=== PATIENT | female | born 1950 | race Caucasian/White ===

== ENCOUNTER 2017-04-03 12:10 | Observation (INO) | payer OTHER ==
[2017-04-03 12:18] VITALS: BMI 25.7
[2017-04-03] MEDS ORDERED: ALBUTEROL SO4 2.5/IPRATROPIUM 0.5 INH SOL 3 ML VIAL.NEB. NEB ONE ×5 (13:41→14:33)
[2017-04-03] MEDS ORDERED: predniSONE 20 MG TABLET (UD) PO ONE (13:41)
[2017-04-03] MEDS ORDERED: predniSONE 20 MG TABLET (UD) ONE (13:51)
--- NOTE | 2017-04-03 13:52 | PDOC ---
Attending Attestation - HPI HPI: 04/03/17 14:46 The patient is a 67 year old female, with a significant past medical history of Asthma, Hypertension, Hyperlipidemia, and Diet Controlled Diabetes, who presents to the emergency department with shortness of breath and cough for the past 3 days. She reports that she has been having difficulty sleeping during this time frame. She notes that her last asthma exacerbation was 3 months ago. She notes that she has never been hospitalized or intubated. She reports being on nebulizer twice a day with little to no improvement of symptoms. She denies being on steroids. She reports that she received her flu shot this year and has had the flu as well, which resolved. The patient denies chest pain, headache and dizziness. Denies fever, chills, nausea, vomit, diarrhea and constipation. Denies dysuria, frequency, urgency and hematuria. Allergies: Black pepper, kiwi Past surgical history: None reported Social history: No alcohol, tobacco or drug use reported - Physicial Exam PE: 04/03/17 14:46 GENERAL: Awake, alert, and fully oriented, in no acute distress HEAD: No signs of trauma, normocephalic, atraumatic EYES: PERRLA, EOMI, sclera anicteric, conjunctiva clear ENT: Auricles normal inspection, hearing grossly normal, nares patent, oropharynx clear without exudates. Moist mucosa NECK: Normal ROM, supple, no lymphadenopathy, JVD, or masses LUNGS: (+) Wheezing diffusely. No distress, speaks full sentences. HEART: Regular rate and rhythm, normal S1 and S2, no murmurs, rubs or gallops, peripheral pulses normal and equal bilaterally. ABDOMEN: Soft, nontender, normoactive bowel sounds. No guarding, no rebound. No masses EXTREMITIES : Normal inspection, Normal range of motion, no edema. No clubbing or cyanosis. NEUROLOGICAL: Cranial nerves II through XII grossly intact. Normal speech, normal gait, no focal sensorimotor deficits SKIN: Warm, Dry, normal turgor, no rashes or lesions noted. <Hilario Morfin - Last Filed: 04/03/17 14:46> - Resident Resident Name: Zack Lau - ED Attending Attestation I have performed the following: I have examined & evaluated the patient, The case was reviewed & discussed with the resident, I agree w/resident's findings & plan, Exceptions are as noted - Medical Decision Making 04/03/17 13:52 I, Dr. Negar Bryan, DO, attest that this document has been prepared under my direction and personally reviewed by me in its entirety. I further attest, that it accurately reflects all work, treatment, procedures and medical decision -making performed by me. 04/03/17 14:18 a/p: 67yo female with wheezing -will give duo nebs received 1 duo neb received prednisone had flu shot no f/c nontoxic in appearance will obtain cxr to r/o pna given productive cough discussed plan with the patient who agrees with the plan 04/03/17 16:00 pt still with wheezing. will do labs will keep in obs for ivf hydration, mag, asthma exacerbation 04/03/17 16:55 pt will be placed in obs <Negar Bryan - Last Filed: 04/03/17 16:55> Discharge Disposition <Hilario Morfin - Last Filed: 04/03/17 14:46> - Discharge Dispostion Last Admission D/C Date: 07/25/02 Admit: Yes <Negar Bryan - Last Filed: 04/03/17 16:55> - Diagnosis Asthma exacerbation - Discharge Dispostion Condition at time of disposition: Fair - Prescriptions Prescriptions: Albuterol Sulfate Inhaler - [Ventolin HFA Inhaler -] 1 - 2 inh PO Q4H #1 inhaler Inhaler, Assist Devices [Space Chamber Plus] 1 each MC QID #1 spacer Prednisone [Deltasone -] 40 mg PO DAILY #4 tablet - Referrals Referrals: Ashley Navarro MD [Primary Care Provider] - - Patient Instructions Printed Discharge Instructions: Asthma -- Adult - Post Discharge Activity
--- NOTE | 2017-04-03 14:34 | PDOC ---
History of Present Illness - General Chief Complaint: Asthma Stated Complaint: ASTHMA Time Seen by Provider: 04/03/17 13:37 History Source: Patient Exam Limitations: No Limitations - History of Present Illness Initial Comments: 04/03/17 14:27 67F with pmh of asthma presenting with sob and non-producing cough for the past 3 days, difficulty sleeping, getting worse. Previous exacerbation 3 months ago. Never hospitalized or intubated, Only used 2 doses of albuterol inhaler at home, Not on steroids. Past History - Past Medical History Allergies/Adverse Reactions: Allergies Allergy/AdvReac Type Severity Reaction Status Date / Time black pepper Allergy STOMACH Verified 06/16/15 19:37 PAIN kiwi Allergy Swelling Verified 06/16/15 19:37 No Known Drug Allergies Allergy Verified 06/16/15 19:37 JALAPENOS Allergy Uncoded 06/16/15 19:37 Home Medications: Ambulatory Orders Ascorbic Acid [Vitamin C] 500 mg PO DAILY 02/03/15 Calcium 500 mg PO DAILY 02/03/15 Docosahexanoic Acid/Epa [Fish Oil Softgel] 1 each PO DAILY 02/03/15 Enalapril Maleate [Vasotec -] 5 mg PO DAILY 02/03/15 Multivitamin [Poly-Vitamin] 1 each PO DAILY 02/03/15 Omeprazole [Prilosec (RX)] 40 mg PO DAILY 02/03/15 Simvastatin [Zocor -] 20 mg PO HS 02/03/15 Albuterol Sulfate [Proventil HFA Inhaler -] 1 - 2 inh PO PRN #1 hfa.aer.ad 06/15 Azithromycin [Zithromax 250mg Tablets -] 250 mg PO UTDICT #6 tab 06/16/15 Fexofenadine HCl [Lisa Allergy] 180 mg PO DAILY #30 tablet 06/16/15 Prednisone [Deltasone -] 20 mg PO BID #7 tablet 06/16/15 Promethazine HCl [Phenergan Plain 6.25 MG/5 ML -] 5 ml PO QID #60 ml 06/16/15 Albuterol Sulfate Inhaler - [Ventolin HFA Inhaler -] 1 - 2 inh PO Q4H #1 inhaler 04/03/17 Inhaler, Assist Devices [Space Chamber Plus] 1 each MC QID #1 spacer 01/14/18 Prednisone [Deltasone -] 40 mg PO DAILY #4 tablet 04/03/17 Anemia: No Asthma: Yes Cancer: Yes (2003 Left breast) Cardiac Disorders: No (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) CVA: No COPD: No CHF: No Dementia: No Diabetes: Yes (Not on meds) GI Disorders: Yes (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) Disorders: No HTN: Yes Hypercholesterolemia: Yes Liver Disease: No Seizures: No Thyroid Disease: No - Immunization History Immunization Up to Date: Yes (flu and pna shot up to date) - Suicide/Smoking/Psychosocial Hx Smoking History: Never smoked Have you smoked in the past 12 months: No Information on smoking cessation initiated: No Hx Alcohol Use: No Drug/Substance Use Hx: No Substance Use Type: None Hx Substance Use Treatment: No Review of Systems - Review of Systems Able to Perform ROS?: Yes Is the patient limited Welsh proficient: No Constitutional: No: Symptoms Reported HEENTM: No: Symptoms Reported Respiratory: Yes: See HPI Cardiac (ROS): No: Symptoms Reported ABD/GI: No: Symptoms Reported : No: Symptoms Reported Musculoskeletal: No: Symptoms Reported Integumentary: No: Symptoms Reported Neurological: No: Symptoms reported *Physical Exam - Vital Signs Last Vital Signs Temp Pulse Resp BP Pulse Ox 99.0 F 98 H 22 189/86 96 04/03/17 12:15 04/03/17 12:15 04/03/17 12:15 04/03/17 12:15 04/03/17 12:15 - Physical Exam General Appearance: Yes: Nourished, Appropriately Dressed, Apparent Distress HEENT: positive: EOMI, ALFREDO, Normal ENT Inspection Neck: negative: Tender Respiratory/Chest: positive: Wheezing (expiratory). negative: Chest Tender Cardiovascular: positive: Regular Rhythm, Regular Rate, S1, S2 Gastrointestinal/Abdominal: positive: Normal Bowel Sounds, Flat, Soft. negative : Tender Extremity: positive: Normal Capillary Refill, Normal Inspection, Normal Range of Motion Integumentary: positive: Normal Color, Dry, Warm Neurologic: positive: Fully Oriented, Alert, Normal Mood/Affect, Normal Response ED Treatment Course - LABORATORY CBC & Chemistry Diagram: 04/03/17 16:10 04/03/17 16:10 - Medications Given in the ED: ED Medications Discontinued Medications Generic Name Dose Route Start Last Admin Trade Name Freq PRN Reason Stop Dose Admin Albuterol/Ipratropium 1 amp 04/03/17 13:41 04/03/17 13:55 Duoneb - NEB 04/03/17 13:42 1 amp ONCE ONE Administration Prednisone 60 mg 04/03/17 13:41 04/03/17 13:55 Deltasone - PO 04/03/17 13:42 60 mg ONCE ONE Administration Medical Decision Making - Medical Decision Making 04/03/17 14:44 3x treatment of duoneb, xray. Dispo 04/03/17 16:36 patient stiill wheezing and coughing after treatment despite breathing easier. Patient admitted to obs *DC/Admit/Observation/Transfer Diagnosis at time of Disposition: Asthma exacerbation - Discharge Dispostion Condition at time of disposition: Fair Admit: Yes - Prescriptions Prescriptions: Albuterol Sulfate Inhaler - [Ventolin HFA Inhaler -] 1 - 2 inh PO Q4H #1 inhaler Inhaler, Assist Devices [Space Chamber Plus] 1 each MC QID #1 spacer Prednisone [Deltasone -] 40 mg PO DAILY #4 tablet - Referrals Referrals: Ashley Navarro MD [Primary Care Provider] - - Patient Instructions Printed Discharge Instructions: Asthma -- Adult - Post Discharge Activity
[2017-04-03] MEDS ORDERED: ALBUTEROL SO4 0.083% IH SOL 2.5 MG/3 ML VIAL.NEB. NEB ONE ×3 (15:41→21:34)
[2017-04-03] MEDS ORDERED: AZITHROMYCIN 500 MG TABLET PO ONE (15:41)
[2017-04-03] MEDS ORDERED: AZITHROMYCIN 500 MG TABLET ONE (15:49)
[2017-04-03] MEDS ORDERED: SODIUM CHLORIDE 0.9% 1000 ML INFUS.BAG IV ONE (15:56)
[2017-04-03] MEDS ORDERED: MAGNESIUM SULF 50% (8.12 MEQ/2 ML-1 GM VIAL) ONE (15:59)
[2017-04-03] MEDS ORDERED: MAGNESIUM SULF 50% (8.12 MEQ/2 ML-1 GM VIAL) IVPB ONE (15:59)
[2017-04-03 16:20] LABS: BASO % 0.8 % (0-2.0); EOS % 6.3 % (0-4.5); HEMATOCRIT 42.3 % (32.4-45.2); HEMOGLOBIN 14.3 GM/dL (10.7-15.3); LYMPH % 14.5 % (8-40); MCH 29.2 pg (25.7-33.7); MCHC 33.7 g/dl (32.0-36.0); MEAN CELL VOLUME 86.6 fl (80-96); MEAN PLT VOLUME 7.9 fl (7.5-11.1); MONO % 3.3 % (3.8-10.2); NEUT % 75.1 % (42.8-82.8); PLATELET COUNT 331 K/MM3 (134-434); RBC 4.89 M/mm3 (3.60-5.2); RDW 13.8 % (11.6-15.6); WHITE BLOOD COUNT 12.6 K/mm3 (4.0-10.0)
--- NOTE | 2017-04-03 16:52 | HP ---
CHIEF COMPLAINT: Shortness of breath and cough PCP: Dr. Guerrero HISTORY OF PRESENT ILLNESS: 67 year-old female with a PMH significant for HTN, HLD, asthma, and NIDDM. Patient presented to the emergency department with shortness of breath and cough x 3 days. Her last asthma exacerbation was 3 months ago. She has never been hospitalized or intubated. She has been using her nebulizer twice a day with little to no improvement of symptoms. She denies being on steroids. She reports that she received her flu shot this year and has had the flu as well, which resolved. The patient denies chest pain, headache and dizziness. Denies fever, chills, nausea, vomit, diarrhea and constipation. Denies dysuria, frequency, urgency and hematuria. ER course was notable for: (1) Duonebs x 3; albuterol neb x 1; mag sulfate 2g x 1l azithro 500mg x 1; prednisone PO 60mg x 1 (2) NS x 1L Recent Travel: No PAST MEDICAL HISTORY: Hypertension Hyperlipidemia Asthma NIDDM PAST SURGICAL HISTORY: None reported Social History: Smoking: no Alcohol: no Drugs: no Family History: Allergies black pepper Allergy (Verified 06/16/15 19:37) STOMACH PAIN kiwi Allergy (Verified 06/16/15 19:37) Swelling No Known Drug Allergies Allergy (Verified 06/16/15 19:37) JALAPENOS Allergy (Uncoded 06/16/15 19:37) HOME MEDICATIONS: Home Medications Medication Instructions Recorded Ascorbic Acid [Vitamin C] 500 mg PO DAILY 02/03/15 Calcium 500 mg PO DAILY 02/03/15 Docosahexanoic Acid/Epa [Fish Oil 1 each PO DAILY 02/03/15 Softgel] Enalapril Maleate [Vasotec -] 5 mg PO DAILY 02/03/15 Multivitamin [Poly-Vitamin] 1 each PO DAILY 02/03/15 Omeprazole [Prilosec (RX)] 40 mg PO DAILY 02/03/15 Simvastatin [Zocor -] 20 mg PO HS 02/03/15 Albuterol Sulfate [Proventil HFA 1 - 2 inh PO PRN #1 hfa.aer.ad 06/16/15 Inhaler -] Azithromycin [Zithromax 250mg 250 mg PO UTDICT #6 tab 06/16/15 Tablets -] Fexofenadine HCl [Lisa Allergy] 180 mg PO DAILY #30 tablet 06/16/15 Prednisone [Deltasone -] 20 mg PO BID #7 tablet 06/16/15 Promethazine HCl [Phenergan Plain 5 ml PO QID #60 ml 06/16/15 6.25 MG/5 ML -] Albuterol Sulfate Inhaler - 1 - 2 inh PO Q4H #1 inhaler 04/03/17 [Ventolin HFA Inhaler -] Inhaler, Assist Devices [Space 1 each MC QID #1 spacer 04/03/17 Chamber Plus] Prednisone [Deltasone -] 40 mg PO DAILY #4 tablet 04/03/17 REVIEW OF SYSTEMS CONSTITUTIONAL: Absent: fever, chills, diaphoresis, generalized weakness, malaise, loss of appetite, weight change HEENT: Absent: rhinorrhea, nasal congestion, throat pain, throat swelling, difficulty swallowing, mouth swelling, ear pain, eye pain, visual changes CARDIOVASCULAR: Absent: chest pain, syncope, palpitations, irregular heart rate, lightheadedness , peripheral edema RESPIRATORY: +SOB, cough Absent: dyspnea with exertion, orthopnea, wheezing, stridor, hemoptysis GASTROINTESTINAL: Absent: abdominal pain, abdominal distension, nausea, vomiting, diarrhea, constipation, melena, hematochezia GENITOURINARY: Absent: dysuria, frequency, urgency, hesitancy, hematuria, flank pain, genital pain MUSCULOSKELETAL: Absent: myalgia, arthralgia, joint swelling, back pain, neck pain SKIN: Absent: rash, itching, pallor HEMATOLOGIC/IMMUNOLOGIC: Absent: easy bleeding, easy bruising, lymphadenopathy, frequent infections ENDOCRINE: Absent: unexplained weight gain, unexplained weight loss, heat intolerance, cold intolerance NEUROLOGIC: Absent: headache, focal weakness or paresthesias, dizziness, unsteady gait, seizure, mental status changes, bladder or bowel incontinence PSYCHIATRIC: Absent: anxiety, depression, suicidal or homicidal ideation, hallucinations. PHYSICAL EXAMINATION Vital Signs - 24 hr 04/03/17 12:15 Temperature 99.0 F Pulse Rate 98 H Respiratory 22 Rate Blood Pressure 189/86 O2 Sat by Pulse 96 Oximetry (%) GENERAL: Awake, alert, and fully oriented, in no acute distress. HEAD: Normal with no signs of trauma. EYES: Pupils equal, round and reactive to light, extraocular movements intact, sclera anicteric, conjunctiva clear. No lid lag. EARS, NOSE, THROAT: Ears normal, nares patent, oropharynx clear without exudates. Moist mucous membranes. NECK: Normal range of motion, supple without lymphadenopathy, JVD, or masses. LUNGS: Diffuse inspiratory and expiratory wheezing; good air movement HEART: Regular rate and rhythm, normal S1 and S2 without murmur, rub or gallop. ABDOMEN: Soft, nontender, not distended, normoactive bowel sounds, no guarding, no rebound, no masses. No hepatomegaly or splenomegaly. MUSCULOSKELETAL: Normal range of motion at all joints. No bony deformities or tenderness. No CVA tenderness. UPPER EXTREMITIES: 2+ pulses, warm, well-perfused. No cyanosis. No clubbing. No peripheral edema. LOWER EXTREMITIES: 2+ pulses, warm, well-perfused. No calf tenderness. No peripheral edema. NEUROLOGICAL: Cranial nerves II-XII intact. Normal speech. Normal gait. PSYCHIATRIC: Cooperative. Good eye contact. Appropriate mood and affect. SKIN: Warm, dry, normal turgor Laboratory Results - last 24 hr 04/03/17 16:10 WBC 12.6 H RBC 4.89 Hgb 14.3 Hct 42.3 MCV 86.6 MCH 29.2 MCHC 33.7 RDW 13.8 Plt Count 331 MPV 7.9 Neutrophils % 75.1 D Lymphocytes % 14.5 D Monocytes % 3.3 L Eosinophils % 6.3 H Basophils % 0.8 ASSESSMENT/PLAN 67 year-old female with a PMH significant for HTN, HLD, asthma, and NIDDM. Placed on observation for asthma exacerbation. Asthma exacerbation --duonebs QID --prednisone 60mg daily Hypertension --continue enalapril Hyperlipidemia --continue statin NIDDM --continue glipizide, metformin DVT prophylaxis: expected short stay; oob, ambulation Dispo: continues to require observation. Visit type - Emergency Visit Emergency Visit: Yes ED Registration Date: 04/03/17 Care time: The patient presented to the Emergency Department on the above date and was hospitalized for further evaluation of their emergent condition. - New Patient This patient is new to me today: Yes Date on this admission: 04/04/17 - Critical Care Critical Care patient: No
[2017-04-03] MEDS ORDERED: ALBUTEROL SO4 0.083% IH SOL 2.5 MG/3 ML VIAL.NEB. NEB PRN (16:57)
[2017-04-03 17:05] LABS: ANION GAP 7 (8-16); BILIRUBIN,TOTAL 0.4 mg/dL (0.2-1.0); BLOOD UREA NITROGEN 15 mg/dL (7-18); CALCIUM 9.2 mg/dL (8.5-10.1); CHLORIDE 105 mmol/L (98-107); CO2 27 mmol/L (21-32); CREATININE 0.8 mg/dL (0.55-1.02); GLUCOSE,RANDOM 136 mg/dL (74-106); POTASSIUM 4.1 mmol/L (3.5-5.1); SGOT/AST 28 U/L (15-37); SGPT/ALT 57 U/L (12-78); SODIUM 139 mmol/L (136-145); TOT PROT 7.7 g/dl (6.4-8.2)
[2017-04-03 17:06] LABS: ALK PHOS 142 U/L (45-117)
[2017-04-03] MEDS: ALBUTEROL SO4 0.083% IH SOL 2.5 MG/3 ML VIAL.NEB. NEB SCH (21:38)
[2017-04-04 08:11] LABS: BASO % 0.4 % (0-2.0); EOS % 1.5 % (0-4.5); HEMATOCRIT 38.9 % (32.4-45.2); HEMOGLOBIN 12.8 GM/dL (10.7-15.3); LYMPH % 16.3 % (8-40); MCH 28.6 pg (25.7-33.7); MCHC 32.8 g/dl (32.0-36.0); MEAN CELL VOLUME 87.1 fl (80-96); MEAN PLT VOLUME 8.2 fl (7.5-11.1); MONO % 6.9 % (3.8-10.2); NEUT % 74.9 % (42.8-82.8); PLATELET COUNT 313 K/MM3 (134-434); RBC 4.46 M/mm3 (3.60-5.2); RDW 13.7 % (11.6-15.6); WHITE BLOOD COUNT 11.3 K/mm3 (4.0-10.0)
[2017-04-04 08:31] LABS: CHLORIDE 106 mmol/L (98-107); POTASSIUM 4.2 mmol/L (3.5-5.1); SODIUM 139 mmol/L (136-145)
[2017-04-04 08:44] LABS: ALBUMIN 3.5 g/dl (3.4-5.0); ALK PHOS 122 U/L (45-117); ANION GAP 11 (8-16); BILIRUBIN,TOTAL 0.4 mg/dL (0.2-1.0); BLOOD UREA NITROGEN 16 mg/dL (7-18); CALCIUM 8.9 mg/dL (8.5-10.1); CO2 22 mmol/L (21-32); CREATININE 0.6 mg/dL (0.55-1.02); GLUCOSE,RANDOM 134 mg/dL (74-106); MAGNESIUM 2.3 mg/dL (1.8-2.4); PHOSPHOROUS 3.2 mg/dL (2.5-4.9); SGOT/AST 22 U/L (15-37); SGPT/ALT 47 U/L (12-78)
[2017-04-04] MEDS: ALBUTEROL SO4 0.083% IH SOL 2.5 MG/3 ML VIAL.NEB. NEB SCH (09:00)
[2017-04-04] MEDS ORDERED: ENALAPRIL MALEATE 5 MG TABLET (FP) PO SCH (10:00)
[2017-04-04] MEDS ORDERED: predniSONE 20 MG TABLET (UD) PO SCH (10:00)
[2017-04-04] MEDS ORDERED: PATIENT'S OWN MEDICATION (NON-FORMULARY) (Glipizide/Metformin Hcl [Glipizide-Metformin 5-5 PO SCH (10:00)
--- NOTE | 2017-04-04 10:32 | EKG ---
Test Reason : Blood Pressure : / mmHG Vent. Rate : 096 BPM Atrial Rate : 096 BPM P-R Int : 172 ms QRS Dur : 086 ms QT Int : 388 ms P-R-T Axes : 058 009 009 degrees QTc Int : 490 ms NORMAL SINUS RHYTHM NONSPECIFIC ST ABNORMALITY PROLONGED QT ABNORMAL ECG WHEN COMPARED WITH ECG OF 21-JAN-2015 15:51, VENT. RATE HAS INCREASED BY 33 BPM QT HAS LENGTHENED Confirmed by CURTIS FELICIANO, ALICIA ([id number]) on 04/04/2017 10:32:28 AM Referred By: Confirmed By:ALICIA ACEVEDO MD
[2017-04-04 10:38] VITALS: BP 152/97; PULSE 90; TEMP 97.9
--- NOTE | 2017-04-04 11:25 | DS ---
Physical Exam: SUBJECTIVE: Patient seen and examined OBJECTIVE: Vital Signs Period Temp Pulse Resp BP Sys/Jaimes Pulse Ox Last 24 Hr 97.9 F-99.0 F 76-98 14-22 142-189/75-97 96-99 PHYSICAL EXAM GENERAL: The patient is awake, alert, and fully oriented, in no acute distress. HEAD: Normal with no signs of trauma. EYES: PERRL, extraocular movements intact, sclera anicteric, conjunctiva clear. ENT: Ears normal, nares patent, oropharynx clear without exudates, moist mucous membranes. NECK: Trachea midline, full range of motion, supple. LUNGS: Breath sounds equal, clear to auscultation bilaterally, no wheezes, no crackles, no accessory muscle use. HEART: Regular rate and rhythm, S1, S2 without murmur, rub or gallop. ABDOMEN: Soft, nontender, nondistended, normoactive bowel sounds, no guarding, no rebound, no hepatosplenomegaly, no masses. EXTREMITIES: 2+ pulses, warm, well-perfused, no edema. NEUROLOGICAL: Cranial nerves II through XII grossly intact. Normal speech, gait not observed. PSYCH: Normal mood, normal affect. SKIN: Warm, dry, normal turgor, no rashes or lesions noted. LABS Laboratory Results - last 24 hr 04/03/17 04/03/17 04/04/17 16:10 16:10 07:30 WBC 12.6 H 11.3 H RBC 4.89 4.46 Hgb 14.3 12.8 D Hct 42.3 38.9 MCV 86.6 87.1 MCH 29.2 28.6 MCHC 33.7 32.8 RDW 13.8 13.7 Plt Count 331 313 MPV 7.9 8.2 Neutrophils % 75.1 D 74.9 Lymphocytes % 14.5 D 16.3 Monocytes % 3.3 L 6.9 D Eosinophils % 6.3 H 1.5 Basophils % 0.8 0.4 Sodium 139 Potassium 4.1 Chloride 105 Carbon Dioxide 27 Anion Gap 7 L BUN 15 Creatinine 0.8 Creat Clearance w eGFR > 60 Random Glucose 136 H Calcium 9.2 Phosphorus Magnesium Total Bilirubin 0.4 AST 28 D ALT 57 D Alkaline Phosphatase 142 H Total Protein 7.7 Albumin 4.0 04/04/17 07:30 WBC RBC Hgb Hct MCV MCH MCHC RDW Plt Count MPV Neutrophils % Lymphocytes % Monocytes % Eosinophils % Basophils % Sodium 139 Potassium 4.2 Chloride 106 Carbon Dioxide 22 Anion Gap 11 BUN 16 Creatinine 0.6 Creat Clearance w eGFR > 60 Random Glucose 134 H Calcium 8.9 Phosphorus 3.2 Magnesium 2.3 Total Bilirubin 0.4 AST 22 D ALT 47 Alkaline Phosphatase 122 H D Total Protein 7.0 Albumin 3.5 HOSPITAL COURSE: Date of Admission:04/03/17 Date of Discharge: 04/04/17 Minutes to complete discharge: 35 Discharge Summary Reason For Visit: ASTHMA WITH ACUTE EXACERBATION Current Active Problems Asthma exacerbation (Acute) Condition: Improved - Instructions Diet, Activity, Other Instructions: Several prescriptions have been sent to your pharmacy. 1. Nebulizer machine, tubing, and mask; 2. Duoneb solution to be used in the nebulizer; 3. Albuterol inhaler 4. Spacer to use with the inhaler 5. Medrol dosepak: take these pills as directed. Be sure to finish all the pills. Return to the emergency department for any new or worsening symptoms. You should follow up with Dr. Clemons within one week of your discharge. Referrals: Ashley Navarro MD [Primary Care Provider] - 1 Week Disposition: HOME - Home Medications Comprehensive Discharge Medication List: Ambulatory Orders Ascorbic Acid [Vitamin C] 500 mg PO DAILY 02/03/15 Calcium 500 mg PO DAILY 02/03/15 Docosahexanoic Acid/Epa [Fish Oil Softgel] 1 each PO DAILY 02/03/15 Enalapril Maleate [Vasotec -] 5 mg PO DAILY 02/03/15 Multivitamin [Poly-Vitamin] 1 each PO DAILY 02/03/15 Omeprazole [Prilosec (RX)] 40 mg PO DAILY 02/03/15 Simvastatin [Zocor -] 20 mg PO HS 02/03/15 Albuterol Sulfate [Proventil HFA Inhaler -] 1 - 2 inh PO PRN #1 hfa.aer.ad 06/15 Fexofenadine HCl [Lisa Allergy] 180 mg PO DAILY #30 tablet 06/16/15 Albuterol Sulfate Inhaler - [Ventolin HFA Inhaler -] 1 - 2 inh PO Q4H #1 inhaler 04/03/17 Glipizide/Metformin HCl [Glipizide-Metformin 5-500 mg] 1 each PO BID 04/03/17 Inhaler, Assist Devices [Space Chamber Plus] 1 each QID #1 spacer 04/03/17 Albuterol 2.5/Ipratropium 0.5 [Duoneb -] 1 neb NEB Q4H PRN #1 box MDD 6 Methylprednisolone [Medrol Dose Renny] 4 mg PO ASDIR #21 tablet 04/04/17 Nebulizer Accessories [A.i.r.s. Nebulizer] 1 each MC DAILY PRN #1 kit 04/04/17 Nebulizer [Aeroeclipse II] 1 each MC DAILY PRN #1 each 04/04/17 This patient is new to me today: No Emergency Visit: Yes ED Registration Date: 04/03/17 Care time: The patient presented to the Emergency Department on the above date and was hospitalized for further evaluation of their emergent condition. Critical Care patient: No - Discharge Referral Referred to [facility] No
[2017-04-04] MEDS ORDERED: metFORMIN HCL 500 MG TABLET (FP) PO SCH (16:30)
[2017-04-04] MEDS ORDERED: glipiZIDE 5 MG TABLET (FP) PO SCH (16:30)
[2017-04-05] MEDS ORDERED: glipiZIDE 5 MG TABLET (FP) PO SCH (07:00)
== END 2017-04-04 12:24 | disposition home or self-care (01) ==
LOC: JER 12:10 → JERBED 16:48
PROVIDERS: ADMIT Internal Medicine; ATTEND Nurse Practitioner Acute Care
PROC: 3E033GC Introduction of Other Therapeutic Substance into Peripheral Vein, Percutaneous Approach (ICD-10-PCS; principal; 2017-04-03)
PROC: 3E0337Z Introduction of Electrolytic and Water Balance Substance into Peripheral Vein, Percutaneous Approach (ICD-10-PCS; 2017-04-03)
PROC: 3E0F7GC Introduction of Other Therapeutic Substance into Respiratory Tract, Via Natural or Artificial Opening (ICD-10-PCS; 2017-04-03)
DX: J45.901 Unspecified asthma with (acute) exacerbation (principal); I10 Essential (primary) hypertension; E78.5 Hyperlipidemia, unspecified; E11.9 Type 2 diabetes mellitus without complications; R01.1 Cardiac murmur, unspecified; Q21.1 Atrial septal defect; Z85.3 Personal history of malignant neoplasm of breast
CPT/HCPCS: 36415; 71046-TC; 80053; 83735; 84100; 85025; 87804; 93005; 93010; 94640; 96374; 99284-25; G0378

== ENCOUNTER 2020-09-06 13:44 | Emergency (ER) | payer MEDICARE, OTHER ==
[2020-09-06 13:50] VITALS: BP 110/78; PULSE 74; TEMP 98.8; BMI 26.6
[2020-09-06] MEDS ORDERED: ACETAMINOPHEN 500 MG TABLET (FP) PO ONE (14:09)
[2020-09-06] MEDS ORDERED: TETRACAINE 0.5% HCL 0.6ML DROPPER.BOTTLE OD ONE (14:09)
[2020-09-06] MEDS ORDERED: FLUORESCEIN NA 1 EA STRIP OD ONE (14:10)
[2020-09-06] MEDS ORDERED: TETRACAINE 0.5% OPHTH SOLN 2 ML BOTTLE ONE (14:16)
[2020-09-06] MEDS ORDERED: FLUORESCEIN NA 1 EA STRIP ONE (14:16)
[2020-09-06] MEDS ORDERED: ACETAMINOPHEN 500 MG TABLET (FP) ONE (14:16)
[2020-09-06] MEDS ORDERED: ERYTHROMYCIN 0.5% OPHTHALMIC OINTMENT 3.5 GM TUBE OD ONE (14:38)
[2020-09-06] MEDS ORDERED: ERYTHROMYCIN 0.5% OPHTHALMIC OINTMENT 3.5 GM TUBE ONE (14:40)
== END 2020-09-06 15:03 | disposition home or self-care (01) ==
LOC: JERFT 13:44
DX: S05.01XA Injury of conjunctiva and corneal abrasion without foreign body, right eye, initial encounter (principal)
CPT/HCPCS: 99283-25

== ENCOUNTER 2020-10-19 13:07 | Emergency (ER) | payer MEDICARE ==
[2020-10-19 13:11] VITALS: BP 172/86; PULSE 90; TEMP 99.2; BMI 25.7
[2020-10-19] MEDS ORDERED: ALBUTEROL SO4 2.5/IPRATROPIUM 0.5 INH SOL 3 ML VIAL.NEB. NEB ONE ×4 (14:56→16:12)
[2020-10-19] MEDS ORDERED: DEXAMETHASONE SOD PHOSPHATE 10 MG/1 ML VIAL IM ONE (14:56)
[2020-10-19] MEDS ORDERED: DEXAMETHASONE SOD PHOSPHATE 10 MG/1 ML VIAL ONE (15:21)
== END 2020-10-19 16:40 | disposition home or self-care (01) ==
LOC: JER 13:07
PROC: 3E023GC Introduction of Other Therapeutic Substance into Muscle, Percutaneous Approach (ICD-10-PCS; principal; 2020-10-19)
PROC: 3E0F7GC Introduction of Other Therapeutic Substance into Respiratory Tract, Via Natural or Artificial Opening (ICD-10-PCS; principal; 2020-10-19)
DX: J45.901 Unspecified asthma with (acute) exacerbation (principal)
CPT/HCPCS: 71045-TC-FY; 94640; 96372; 99284-25; C9803; J1100; U0003; U0005

== ENCOUNTER 2021-11-26 04:15 | Day surgery (SDC) | payer OTHER ==
[2021-10-30 14:31] VITALS: BMI 26.1
[~2021-11-26 04:15] MED LIST: TOBRAMYCIN/DEXAMETHASONE OPHTH. OINTMENT 1 TUBE TP ONE
[2021-11-26] MEDS ORDERED: TOBRAMYCIN/DEXAMETHASONE OPHTH. OINTMENT 1 TUBE ONE (07:13)
[2021-11-26] MEDS ORDERED: EPINEPHrine/PF 1 MG/1 ML (1:1,000) AMPULE ONE (07:13)
[2021-11-26] MEDS ORDERED: LIDOCAINE HCL/PF 1% SDV 5ML VIAL ONE (07:13)
[2021-11-26] MEDS ORDERED: BSS (NA/CA/MG/K) BALANCED SALT SOLUTION OPHTH SOLN 15 ML BOTTLE ONE (07:14)
[2021-11-26] MEDS ORDERED: TETRACAINE 0.5% OPHTH SOLN 2 ML BOTTLE ONE (07:14)
[2021-11-26] MEDS ORDERED: POVIDONE-IODINE 5% OPHTHALMIC PREP 30 ML SOLUTION ONE (07:14)
[2021-11-26] MEDS ORDERED: CIPROFLOXACIN 0.3% EYE DROPS 5 ML BOTTLE ONE (07:24)
[2021-11-26] MEDS ORDERED: PHENYLEPHRINE 2.5% OPTHALMIC DROP BOTTLE ONE (07:24)
[2021-11-26] MEDS ORDERED: TROPICAMIDE 1% OPHTH SOLN 15 ML BOTTLE ONE (07:24)
[2021-11-26] MEDS ORDERED: DICLOFENAC SODIUM 0.1% OPHTHALMIC 2.5ML BOTTLE ONE (07:24)
[2021-11-26] MEDS ORDERED: CIPROFLOXACIN HCL 0.3% OPHTH 2.5ML BOTTLE OD ONE (07:40)
[2021-11-26] MEDS ORDERED: TROPICAMIDE 0.5% OPHTHALMIC SOLN 15 ML BOTTLE OD ONE (07:40)
[2021-11-26] MEDS ORDERED: PHENYLEPHRINE 2.5% OPHTH SOLN 15 ML BOTTLE OD ONE (07:40)
[2021-11-26] MEDS ORDERED: DICLOFENAC SODIUM 0.1% OPHTHALMIC 2.5ML BOTTLE OD ONE (07:40)
[2021-11-26] MEDS ORDERED: ACETAMINOPHEN 325 MG TABLET (FP) PO PRN (07:41)
[2021-11-26] MEDS: PHENYLEPHRINE 2.5% OPHTH SOLN 15 ML BOTTLE OP SCH ×2 (07:50→07:55)
[2021-11-26] MEDS: CIPROFLOXACIN HCL 0.3% OPHTH 2.5ML BOTTLE OP SCH ×2 (07:50→07:55)
[2021-11-26] MEDS: TROPICAMIDE 1% OPHTH SOLN 15 ML BOTTLE OP SCH ×2 (07:50→07:55)
[2021-11-26] MEDS: DICLOFENAC SODIUM 0.1% OPHTHALMIC 2.5ML BOTTLE OP SCH ×2 (07:50→07:55)
[2021-11-26] MEDS ORDERED: MIDAZOLAM HCL 2 MG/2 ML SINGLE DOSE VIAL ONE (08:42)
[2021-11-26] MEDS ORDERED: TETRACAINE 0.5% OPHTH SOLN 2 ML BOTTLE TP ONE (08:46)
[2021-11-26] MEDS ORDERED: POVIDONE-IODINE 5% OPHTHALMIC PREP 30 ML SOLUTION OD ONE (08:47)
[2021-11-26] MEDS ORDERED: TRYPAN BLUE 0.5 ML DISP.SYRIN ONE (08:55)
[2021-11-26] MEDS ORDERED: BSS (NA/CA/MG/K) BALANCED SALT SOLUTION OPHTH SOLN 15 ML BOTTLE OD ONE (08:55)
[2021-11-26] MEDS ORDERED: CHONDROITIN SU A/HYALUR SOD 1 KIT IO ONE (08:56)
[2021-11-26] MEDS ORDERED: LIDOCAINE HCL 1% PRESERVATIVE FREE - 30ML VIAL IO ONE (08:56)
[2021-11-26] MEDS ORDERED: TRYPAN BLUE 0.5 ML DISP.SYRIN IO ONE (08:57)
[2021-11-26] MEDS ORDERED: EPINEPHrine/PF 1 MG/1 ML (1:1,000) AMPULE SQ ONE (09:02)
[2021-11-26] MEDS ORDERED: TOBRAMYCIN/DEXAMETHASONE OPHTH. OINTMENT 1 TUBE TP ONE (09:23)
[2021-11-26] MEDS ORDERED: ACETAMINOPHEN 325 MG TABLET (FP) ONE (10:06)
[2021-11-26] MEDS ORDERED: ACETAMINOPHEN 325 MG TABLET (FP) PO ONE (10:10)
[2021-11-26 10:55] VITALS: BP 137/52; PULSE 70; RESP 16; TEMP 96.5
== END 2021-11-26 11:33 | disposition home or self-care (01) ==
LOC: JASU-SURG 04:15
PROVIDERS: ATTEND Ophthalmology
PROC: 08RJ3JZ Replacement of Right Lens with Synthetic Substitute, Percutaneous Approach (ICD-10-PCS; principal; 2021-11-26 08:30)
DX: H26.8 Other specified cataract (principal)
CPT/HCPCS: 82962

== ENCOUNTER 2021-12-22 17:21 | Emergency (ER) | payer OTHER ==
[2021-12-22 17:35] VITALS: BP 127/59; PULSE 84; RESP 18; TEMP 97.9; BMI 26.4
== END 2021-12-22 18:48 | disposition home or self-care (01) ==
LOC: JER 17:21
DX: U07.1 COVID-19 (principal)
CPT/HCPCS: 0241U-QW; 99283-25

== ENCOUNTER 2022-11-07 13:53 | Observation (INO) | payer OTHER ==
[2022-11-07 14:03] VITALS: BMI 27.8
[2022-11-07] MEDS ORDERED: methylPREDNISolone NA SUCC 125 MG/2 ML VIAL IVPB ONE (15:04)
[2022-11-07] MEDS ORDERED: ALBUTEROL SO4 2.5/IPRATROPIUM 0.5 INH SOL 3 ML VIAL.NEB. NEB ONE (15:29)
[2022-11-07] MEDS ORDERED: methylPREDNISolone NA SUCC 125 MG/2 ML VIAL ONE (15:30)
[2022-11-07] MEDS: ALBUTEROL SO4 2.5/IPRATROPIUM 0.5 INH SOL 3 ML VIAL.NEB. NEB SCH (15:39)
[2022-11-07 15:42] LABS: URINE APPEARANCE CLEAR; URINE BILIRUBIN NEGATIVE (NEGATIVE); URINE COLOR YELLOW; URINE GLUCOSE (UA) NEGATIVE (NEGATIVE); URINE KETONE NEGATIVE (NEGATIVE); URINE LEUK ESTERASE NEGATIVE (NEGATIVE); URINE NITRITE NEGATIVE (NEGATIVE); URINE PROTEIN NEGATIVE (NEGATIVE); URINE UROBILINOGEN 0.2 mg/dL (0.2-1.0)
[2022-11-07 15:49] LABS: BASO % 0.2 % (0-2.0); HEMATOCRIT 38.7 % (32.4-45.2); HEMOGLOBIN 13.3 GM/dL (10.7-15.3); LYMPH % 20.5 % (8-40); MCH 29.6 pg (25.7-33.7); MCHC 34.3 g/dl (32.0-36.0); MEAN CELL VOLUME 86.1 fl (80-96); MONO % 5.7 % (3.8-10.2); NEUT % 58.6 % (42.8-82.8); PLATELET COUNT 355 10^3/uL (134-434); RDW 13.7 % (11.6-15.6); WHITE BLOOD COUNT 10.5 K/mm3 (4.0-10.0)
[2022-11-07] MEDS ORDERED: ACETAMINOPHEN 1000 MG/100 ML BAG IVPB ONE (16:11)
[2022-11-07 16:43] LABS: POTASSIUM 4.4 mmol/L (3.5-5.1)
[2022-11-07 16:45] LABS: CALCIUM 9.6 mg/dL (8.5-10.1)
[2022-11-07 16:46] LABS: ALBUMIN 3.7 g/dl (3.4-5.0); BLOOD UREA NITROGEN 16.9 mg/dL (7-18)
[2022-11-07 16:49] LABS: CREATININE 0.8 mg/dL (0.55-1.3)
[2022-11-07 16:50] LABS: TOT PROT 7.1 g/dl (6.4-8.2)
[2022-11-07 16:51] LABS: BILIRUBIN,TOTAL 0.4 mg/dL (0.2-1)
[2022-11-07] MEDS ORDERED: ACETAMINOPHEN INJECTION 100 ML IVPB ONE (16:51)
[2022-11-07] MEDS ORDERED: MAGNESIUM SULFATE IN WATER 2 GM/50 ML IVPB IVPB ONE ×2 (18:58→19:24)
[2022-11-08] MEDS ORDERED: ALBUTEROL SO4 2.5/IPRATROPIUM 0.5 INH SOL 3 ML VIAL.NEB. NEB PRN (00:38)
[2022-11-08] MEDS ORDERED: methylPREDNISolone NA SUCC 40 MG/1 ML VIAL IVPUSH SCH ×2 (01:15→22:00)
[2022-11-08] MEDS ORDERED: INSULIN SLIDING SCALE (NOVOLOG) 1 VIAL SQ SCH ×2 (07:00→11:00)
[2022-11-08] MEDS ORDERED: GLIMEPIRIDE 2 MG TABLET PO SCH (07:00)
[2022-11-08] MEDS ORDERED: PIOGLITAZONE HCL 30 MG TABLET PO SCH (07:45)
[2022-11-08] MEDS ORDERED: ALBUTEROL SO4 2.5/IPRATROPIUM 0.5 INH SOL 3 ML VIAL.NEB. NEB SCH (08:00)
[2022-11-08 08:01] LABS: HEMOGLOBIN 13.2 GM/dL (10.7-15.3); MCH 29.1 pg (25.7-33.7); MEAN CELL VOLUME 88.2 fl (80-96); MEAN PLT VOLUME 8.5 fl (7.5-11.1); PLATELET COUNT 377 10^3/uL (134-434); RBC 4.53 M/mm3 (3.60-5.2); RDW 13.8 % (11.6-15.6); WHITE BLOOD COUNT 14.5 K/mm3 (4.0-10.0)
[2022-11-08] MEDS ORDERED: ALBUTEROL SO4 2.5/IPRATROPIUM 0.5 INH SOL 3 ML VIAL.NEB. NEB ONE (08:20)
[2022-11-08] MEDS ORDERED: PANTOPRAZOLE 40 MG TABLET PO ONE (08:20)
[2022-11-08] MEDS ORDERED: ENOXAPARIN NA (PORCINE) 40 MG/0.4 ML DISP.SYRIN SQ ONE (08:20)
[2022-11-08] MEDS ORDERED: ENALAPRIL MALEATE 5 MG TABLET ONE (08:20)
[2022-11-08 08:32] LABS: POTASSIUM 4.8 mmol/L (3.5-5.1)
[2022-11-08 08:40] LABS: CALCIUM 9.4 mg/dL (8.5-10.1)
[2022-11-08 08:41] LABS: ALBUMIN 3.6 g/dl (3.4-5.0); BLOOD UREA NITROGEN 20.4 mg/dL (7-18); MAGNESIUM 2.4 mg/dL (1.8-2.4)
[2022-11-08 08:44] LABS: CREATININE 0.8 mg/dL (0.55-1.3); PHOSPHOROUS 3.5 mg/dL (2.5-4.9)
[2022-11-08 08:45] LABS: BILIRUBIN,TOTAL 0.6 mg/dL (0.2-1)
[2022-11-08] MEDS ORDERED: ENOXAPARIN NA (PORCINE) 40 MG/0.4 ML DISP.SYRIN SQ SCH (10:00)
[2022-11-08] MEDS ORDERED: FLUTICASONE/UMECLIDIN/VILANTER(100-62.5-25 TRELEGY ELLIPTA) INAHLER IH SCH (10:00)
[2022-11-08] MEDS ORDERED: ENALAPRIL MALEATE 10 MG TABLET PO SCH (10:00)
[2022-11-08] MEDS ORDERED: PANTOPRAZOLE 40 MG TABLET PO SCH (10:00)
[2022-11-08 10:48] VITALS: TEMP 98.2
[2022-11-08 12:09] LABS: MAGNESIUM 2.1 mg/dL (1.8-2.4)
[2022-11-08 13:03] VITALS: BP 134/74; PULSE 94; RESP 16
[2022-11-08] MEDS ORDERED: MONTELUKAST NA 5 MG TAB.CHEW PO SCH (22:00)
[2022-11-08] MEDS ORDERED: ATORVASTATIN CA 20 MG TABLET (FP) PO SCH (22:00)
== END 2022-11-08 13:05 | disposition home or self-care (01) ==
LOC: JER 13:53 → JERBED 21:06
PROVIDERS: ADMIT Internal Medicine; ATTEND Internal Medicine
PROC: 3E0F7GC Introduction of Other Therapeutic Substance into Respiratory Tract, Via Natural or Artificial Opening (ICD-10-PCS; principal; 2022-11-07)
PROC: 3E023GC Introduction of Other Therapeutic Substance into Muscle, Percutaneous Approach (ICD-10-PCS; 2022-11-07)
PROC: 3E013VG Introduction of Insulin into Subcutaneous Tissue, Percutaneous Approach (ICD-10-PCS; 2022-11-07)
PROC: 3E033GC Introduction of Other Therapeutic Substance into Peripheral Vein, Percutaneous Approach (ICD-10-PCS; 2022-11-07)
DX: J45.41 Moderate persistent asthma with (acute) exacerbation (principal); R06.02 Shortness of breath; R05.9 Cough, unspecified; M54.9 Dorsalgia, unspecified; Z85.3 Personal history of malignant neoplasm of breast; E11.9 Type 2 diabetes mellitus without complications; I10 Essential (primary) hypertension
CPT/HCPCS: 0241U-QW; 36415; 71045-TC-FY; 71250-TC; 80053; 81003; 82962; 83735; 83880; 84100; 84484; 85025; 85027; 87086; 93005; 93010; 94640; 96365; 96372; 96375; 96376; 99285-25; G0378

== ENCOUNTER 2023-07-07 15:21 | Inpatient (IN) | payer OTHER ==
[2023-07-07] MEDS ORDERED: ALBUTEROL SO4 2.5/IPRATROPIUM 0.5 INH SOL 3 ML VIAL.NEB. NEB ONE (16:20)
[2023-07-07] MEDS ORDERED: DEXAMETHASONE SOD PHOSPHATE 10 MG/1 ML VIAL ONE (16:20)
[2023-07-07] MEDS: DEXAMETHASONE SOD PHOSPHATE 10 MG/1 ML VIAL IM ONE (16:23)
[2023-07-07] MEDS: ALBUTEROL SO4 2.5/IPRATROPIUM 0.5 INH SOL 3 ML VIAL.NEB. NEB ONE (16:23)
[2023-07-07] MEDS ORDERED: methylPREDNISolone NA SUCC 125 MG/2 ML VIAL ONE (16:44)
[2023-07-07] MEDS: DEXAMETHASONE SOD PHOSPHATE 10 MG/1 ML VIAL IVPUSH ONE (16:48)
[2023-07-07] MEDS: methylPREDNISolone NA SUCC 125 MG/2 ML VIAL IVPB ONE (16:55)
[2023-07-07 17:23] LABS: HEMATOCRIT 42.3 % (32.4-45.2); HEMOGLOBIN 13.9 GM/dL (10.7-15.3); MCH 28.6 pg (25.7-33.7); MCHC 32.9 g/dl (32.0-36.0); MEAN CELL VOLUME 87.1 fl (80-96); MEAN PLT VOLUME 8.1 fl (7.5-11.1); PLATELET COUNT 353 10^3/uL (134-434); RBC 4.86 M/mm3 (3.60-5.2); RDW 13.8 % (11.6-15.6); WHITE BLOOD COUNT 15.6 K/mm3 (4.0-10.0)
[2023-07-07 17:43] LABS: POTASSIUM 4.7 mmol/L (3.5-5.1)
[2023-07-07 17:45] LABS: CALCIUM 9.7 mg/dL (8.5-10.1)
[2023-07-07 17:46] LABS: ALBUMIN 3.9 g/dl (3.4-5.0); BLOOD UREA NITROGEN 13.3 mg/dL (7-18)
[2023-07-07 17:49] LABS: CREATININE 0.7 mg/dL (0.55-1.3)
[2023-07-07 17:51] LABS: BILIRUBIN,TOTAL 0.6 mg/dL (0.2-1); TOT PROT 7.4 g/dl (6.4-8.2)
[2023-07-07] MEDS ORDERED: MAGNESIUM SULFATE IN WATER 2 GM/50 ML IVPB IVPB ONE (18:37)
[2023-07-07] MEDS ORDERED: ALBUTEROL SO4 0.083% IH SOL 2.5 MG/3 ML VIAL.NEB. NEB ONE (18:37)
[2023-07-07] MEDS: MAGNESIUM SULFATE IN WATER 2 GM/50 ML IVPB IVPB ONE (18:40)
[2023-07-07] MEDS: ALBUTEROL SO4 0.083% IH SOL 2.5 MG/3 ML VIAL.NEB. NEB ONE (18:40)
[2023-07-07] MEDS ORDERED: ALBUTEROL SO4 2.5/IPRATROPIUM 0.5 INH SOL 3 ML VIAL.NEB. NEB PRN (22:42)
[2023-07-08] MEDS: ALBUTEROL SO4 2.5/IPRATROPIUM 0.5 INH SOL 3 ML VIAL.NEB. NEB SCH (01:52)
[2023-07-08 03:00] VITALS: BMI 29.0
[2023-07-08] MEDS: INSULIN (NOVOLOG) ASPART 100 UNITS/ML 10ML VIAL SQ SCH (06:04)
[2023-07-08] MEDS: INSULIN ASPART SLIDING SCALE (NOVOLOG) 1 VIAL SQ SCH (06:04)
[2023-07-08] MEDS ORDERED: ALBUTEROL SO4 2.5/IPRATROPIUM 0.5 INH SOL 3 ML VIAL.NEB. NEB SCH (08:00)
[2023-07-08 08:45] LABS: BASO % 0.4 % (0-2.0); EOS % 0.3 % (0-4.5); HEMATOCRIT 39.1 % (32.4-45.2); HEMOGLOBIN 13.3 GM/dL (10.7-15.3); LYMPH % 10.1 % (8-40); MCH 29.1 pg (25.7-33.7); MCHC 34.1 g/dl (32.0-36.0); MEAN CELL VOLUME 85.5 fl (80-96); MEAN PLT VOLUME 8.1 fl (7.5-11.1); MONO % 3.4 % (3.8-10.2); NEUT % 85.8 % (42.8-82.8); PLATELET COUNT 338 10^3/uL (134-434); RBC 4.58 M/mm3 (3.60-5.2); WHITE BLOOD COUNT 14.3 K/mm3 (4.0-10.0)
[2023-07-08 09:03] LABS: POTASSIUM 4.9 mmol/L (3.5-5.1)
[2023-07-08 09:10] LABS: BLOOD UREA NITROGEN 20.5 mg/dL (7-18); CALCIUM 9.7 mg/dL (8.5-10.1)
[2023-07-08 09:11] LABS: ALBUMIN 3.5 g/dl (3.4-5.0); MAGNESIUM 2.6 mg/dL (1.8-2.4)
[2023-07-08 09:13] LABS: PHOSPHOROUS 3.7 mg/dL (2.5-4.9)
[2023-07-08 09:14] LABS: CREATININE 0.6 mg/dL (0.55-1.3)
[2023-07-08 09:15] LABS: BILIRUBIN,TOTAL 0.8 mg/dL (0.2-1)
[2023-07-08] MEDS: ENOXAPARIN NA (PORCINE) 40 MG/0.4 ML DISP.SYRIN SQ SCH (09:29)
[2023-07-08] MEDS: methylPREDNISolone NA SUCC 40 MG/1 ML VIAL IVPUSH SCH (09:29)
[2023-07-08] MEDS: ENALAPRIL MALEATE 10 MG TABLET PO SCH (09:32)
[2023-07-08] MEDS ORDERED: predniSONE 20 MG TABLET (UD) PO SCH (10:00)
[2023-07-08] MEDS ORDERED: INSULIN (NOVOLOG) ASPART 100 UNITS/ML 10ML VIAL ONE ×2 (11:21→17:00)
[2023-07-08] MEDS: AZITHROMYCIN IVPB 500 MG/250 ML BAG IVPB ONE (13:28)
[2023-07-08] MEDS: CEFTRIAXONE 1 GM in DEXTROSE 5%-WATER - 50 ML IVPB ONE (14:36)
[2023-07-08] MEDS: MONTELUKAST NA 10 MG TABLET PO SCH (21:48)
[2023-07-08] MEDS: INSULIN (LEVEMIR) 100 UNITS/ML UNITS SQ SCH (21:54)
[2023-07-09] MEDS: CEFTRIAXONE 1 GM in DEXTROSE 5%-WATER - 50 ML IVPB SCH (09:53)
[2023-07-09] MEDS: AZITHROMYCIN IVPB 250 MG in DEXTROSE 5%-WATER - 250 ML IVPB SCH (09:55)
[2023-07-09 10:18] LABS: BASO % 0.2 % (0-2.0); EOS % 0.1 % (0-4.5); LYMPH % 6.8 % (8-40); MCH 28.2 pg (25.7-33.7); MCHC 32.6 g/dl (32.0-36.0); MEAN CELL VOLUME 86.4 fl (80-96); MEAN PLT VOLUME 8.2 fl (7.5-11.1); MONO % 2.6 % (3.8-10.2); NEUT % 90.3 % (42.8-82.8); PLATELET COUNT 347 10^3/uL (134-434); RBC 4.63 M/mm3 (3.60-5.2); RDW 13.8 % (11.6-15.6); WHITE BLOOD COUNT 19.4 K/mm3 (4.0-10.0)
[2023-07-09 10:38] LABS: POTASSIUM 4.6 mmol/L (3.5-5.1)
[2023-07-09 10:50] LABS: ALBUMIN 3.5 g/dl (3.4-5.0); BLOOD UREA NITROGEN 22.7 mg/dL (7-18); CALCIUM 9.8 mg/dL (8.5-10.1); MAGNESIUM 2.5 mg/dL (1.8-2.4)
[2023-07-09 10:53] LABS: CREATININE 0.7 mg/dL (0.55-1.3)
[2023-07-09 10:54] LABS: BILIRUBIN,TOTAL 0.5 mg/dL (0.2-1); TOT PROT 6.9 g/dl (6.4-8.2)
[2023-07-09] MEDS ORDERED: ALBUTEROL SO4 0.083% IH SOL 2.5 MG/3 ML VIAL.NEB. NEB PRN (10:54)
[2023-07-09] MEDS: ALBUTEROL SO4 2.5/IPRATROPIUM 0.5 INH SOL 3 ML VIAL.NEB. NEB SCH (12:51)
[2023-07-09] MEDS ORDERED: INSULIN (NOVOLOG) ASPART 100 UNITS/ML 10ML VIAL ONE (20:53)
[2023-07-09] MEDS: INSULIN (LEVEMIR) 100 UNITS/ML UNITS SQ SCH (21:08)
[2023-07-10 09:20] LABS: BASO % 0.1 % (0-2.0); HEMATOCRIT 42.7 % (32.4-45.2); HEMOGLOBIN 13.8 GM/dL (10.7-15.3); LYMPH % 9.2 % (8-40); MCH 27.9 pg (25.7-33.7); MCHC 32.4 g/dl (32.0-36.0); MEAN CELL VOLUME 86.3 fl (80-96); MEAN PLT VOLUME 8.2 fl (7.5-11.1); MONO % 2.4 % (3.8-10.2); NEUT % 88.3 % (42.8-82.8); PLATELET COUNT 380 10^3/uL (134-434); RBC 4.95 M/mm3 (3.60-5.2); RDW 13.5 % (11.6-15.6); WHITE BLOOD COUNT 17.8 K/mm3 (4.0-10.0)
[2023-07-10 09:44] LABS: POTASSIUM 4.3 mmol/L (3.5-5.1)
[2023-07-10 09:55] LABS: CALCIUM 9.8 mg/dL (8.5-10.1)
[2023-07-10 09:56] LABS: ALBUMIN 3.6 g/dl (3.4-5.0); BLOOD UREA NITROGEN 25.1 mg/dL (7-18); MAGNESIUM 2.3 mg/dL (1.8-2.4)
[2023-07-10 09:59] LABS: BILIRUBIN,TOTAL 0.7 mg/dL (0.2-1); CREATININE 0.9 mg/dL (0.55-1.3)
[2023-07-10] MEDS ORDERED: INSULIN (NOVOLOG) ASPART 100 UNITS/ML 10ML VIAL ONE (20:54)
[2023-07-10] MEDS: guaiFENesin/CODEINE 10 ML UNIT-DOSE CUPS PO PRN (21:42)
[2023-07-11 08:48] LABS: HEMOGLOBIN 14.5 GM/dL (10.7-15.3); MCHC 33.6 g/dl (32.0-36.0); MEAN CELL VOLUME 86.2 fl (80-96); MEAN PLT VOLUME 8.2 fl (7.5-11.1); PLATELET COUNT 397 10^3/uL (134-434); RBC 4.99 M/mm3 (3.60-5.2); RDW 13.8 % (11.6-15.6); WHITE BLOOD COUNT 15.7 K/mm3 (4.0-10.0)
[2023-07-11 09:04] LABS: POTASSIUM 4.6 mmol/L (3.5-5.1)
[2023-07-11 09:12] LABS: ALBUMIN 3.7 g/dl (3.4-5.0); BLOOD UREA NITROGEN 23.4 mg/dL (7-18)
[2023-07-11 09:13] LABS: BILIRUBIN,TOTAL 0.6 mg/dL (0.2-1); TOT PROT 7.2 g/dl (6.4-8.2)
[2023-07-11 09:15] LABS: CREATININE 0.8 mg/dL (0.55-1.3)
[2023-07-11 09:16] LABS: CALCIUM 9.9 mg/dL (8.5-10.1); MAGNESIUM 2.4 mg/dL (1.8-2.4)
[2023-07-11 10:30] LABS: ANISOCYTOSIS 0; MACROCYTOSIS 0
[2023-07-11] MEDS ORDERED: INSULIN (NOVOLOG) ASPART 100 UNITS/ML 10ML VIAL ONE ×2 (11:13)
[2023-07-12] MEDS: INSULIN ASPART SLIDING SCALE (NOVOLOG) 1 VIAL SQ SCH (11:24)
[2023-07-12] MEDS ORDERED: INSULIN (NOVOLOG) ASPART 100 UNITS/ML 10ML VIAL ONE ×4 (11:31→17:18)
[2023-07-12] MEDS: INSULIN (LEVEMIR) 100 UNITS/ML UNITS SQ ONE (11:53)
[2023-07-12 15:12] VITALS: RESP 18
[2023-07-12] MEDS: methylPREDNISolone NA SUCC 40 MG/1 ML VIAL IVPUSH SCH (21:34)
[2023-07-13 09:57] VITALS: BP 125/56; PULSE 72; TEMP 98.6
[2023-07-13] MEDS ORDERED: INSULIN (NOVOLOG) ASPART 100 UNITS/ML 10ML VIAL ONE (11:55)
== END 2023-07-13 12:53 | disposition home or self-care (01) | DRG 203 ==
LOC: JER 15:21 → JERBED 18:50 → OBSVTOIN 07-08 00:48 → J8W 07-08 02:48
PROVIDERS: ADMIT Student in an Organized Health Care Education/Training Program; ATTEND Nurse Practitioner Family
DX: J45.901 Unspecified asthma with (acute) exacerbation (principal); E11.65 Type 2 diabetes mellitus with hyperglycemia; I10 Essential (primary) hypertension; E78.5 Hyperlipidemia, unspecified
CPT/HCPCS: 0241U-QW; 36415; 71045-TC-FY; 80048; 80053; 82962; 83036; 83735; 84100; 84484; 85025; 85027; 93005; 93010; 94150; 94640; 99285-25; G0378

== ENCOUNTER 2023-08-16 04:15 | Day surgery (SDC) | payer OTHER ==
[2023-08-16 08:56] VITALS: BMI 28.3
[2023-08-16 09:43] VITALS: TEMP 97.9
[2023-08-16 10:16] VITALS: RESP 16
[2023-08-16 10:18] VITALS: BP 111/53; PULSE 62
== END 2023-08-16 10:50 | disposition home or self-care (01) ==
LOC: JASU-ENDO 04:15
PROVIDERS: ATTEND Internal Medicine Gastroenterology
PROC: 0DB78ZX Excision of Stomach, Pylorus, Via Natural or Artificial Opening Endoscopic, Diagnostic (ICD-10-PCS; 2023-08-16)
PROC: 0DB28ZX Excision of Middle Esophagus, Via Natural or Artificial Opening Endoscopic, Diagnostic (ICD-10-PCS; 2023-08-16)
PROC: 0DB48ZX Excision of Esophagogastric Junction, Via Natural or Artificial Opening Endoscopic, Diagnostic (ICD-10-PCS; 2023-08-16)
PROC: 0DB98ZX Excision of Duodenum, Via Natural or Artificial Opening Endoscopic, Diagnostic (ICD-10-PCS; principal; 2023-08-16 09:00)
DX: K29.00 Acute gastritis without bleeding (principal); K21.00 Gastro-esophageal reflux disease with esophagitis, without bleeding; K22.70 Barrett's esophagus without dysplasia
CPT/HCPCS: 82962; 88305-TC; 88342-TC

== ENCOUNTER 2024-08-28 18:11 | Emergency (ER) | payer OTHER ==
[2024-08-28 18:20] VITALS: TEMP 98.1; BMI 27.4
[2024-08-28] MEDS ORDERED: ACETAMINOPHEN 500 MG TABLET (FP) ONE (19:08)
[2024-08-28] MEDS: ACETAMINOPHEN 500 MG TABLET (FP) PO ONE (19:13)
[2024-08-28 19:29] LABS: PH,URINE 5.5 (5.0-8.0); URINE APPEARANCE CLEAR; URINE BILIRUBIN NEGATIVE (NEGATIVE); URINE COLOR YELLOW; URINE GLUCOSE (UA) 3+ (NEGATIVE); URINE KETONE NEGATIVE (NEGATIVE); URINE LEUK ESTERASE NEGATIVE (NEGATIVE); URINE NITRITE NEGATIVE (NEGATIVE); URINE PROTEIN NEGATIVE (NEGATIVE); URINE UROBILINOGEN 0.2 mg/dL (0.2-1.0)
[2024-08-28 20:19] LABS: ABSOLUTE IMMATURE GRANULOCYTES 0.15 x10^3/uL (0.0-0.031); BASOPHILS # 0.07 x10^3/uL (0.01-0.08); EOSINOPHIL % 6.4 % (0.7-5.8); HEMATOCRIT 40.7 % (34.1-44.9); HEMOGLOBIN 13.4 g/dL (11.2-15.7); MCHC 32.9 g/dl (32.2-35.5); MEAN PLT VOLUME 9.9 fl (9.4-12.3); MONOCYTE # 0.63 x10^3/uL (0.24-0.86); MONOCYTE % 5.7 % (4.7-12.5); PLATELET COUNT 314 x10^3/uL (182-369); RDW 12.4 % (12.4-16.6)
[2024-08-28 20:40] LABS: POTASSIUM 4.3 mmol/L (3.5-5.1)
[2024-08-28 20:42] LABS: BLOOD UREA NITROGEN 18.5 mg/dL (7-18); CALCIUM 10.2 mg/dL (8.5-10.1)
[2024-08-28 20:43] LABS: ALBUMIN 3.6 g/dl (3.4-5.0)
[2024-08-28 20:46] LABS: CREATININE 0.6 mg/dL (0.55-1.3)
[2024-08-28 20:47] LABS: BILIRUBIN,TOTAL 0.3 mg/dL (0.2-1); TOT PROT 6.6 g/dl (6.4-8.2)
[2024-08-28 21:29] LABS: HCV DIAGNOSTIC IN-HOUSE W/RFLX NON-REACTIVE (NONREACTIVE)
[2024-08-28 21:30] LABS: HIV INTERPRETATION NEGATIVE (NEGATIVE)
[2024-08-29 01:22] VITALS: BP 145/76; PULSE 65; RESP 17
== END 2024-08-29 06:02 | disposition home or self-care (01) ==
LOC: JER 18:11
DX: C54.1 Malignant neoplasm of endometrium (principal); R10.30 Lower abdominal pain, unspecified; R30.0 Dysuria; R31.9 Hematuria, unspecified
CPT/HCPCS: 36415; 74177-TC; 76705-TC; 76830-TC; 80053; 81003; 83690; 85025; 86803; 87086; 87389; 99285-25; Q9967

== ENCOUNTER 2024-10-24 13:58 | Emergency (ER) | payer OTHER ==
[2024-10-24 14:03] VITALS: BP 169/65; PULSE 76; RESP 20; TEMP 98.1; BMI 26.6
[2024-10-24] MEDS ORDERED: ACETAMINOPHEN 500 MG TABLET (FP) ONE (14:40)
[2024-10-24] MEDS ORDERED: IBUPROFEN 400 MG TABLET (FP) PO ONE (14:41)
[2024-10-24] MEDS: IBUPROFEN 400 MG TABLET (FP) PO ONE (14:46)
[2024-10-24] MEDS: ACETAMINOPHEN 500 MG TABLET (FP) PO ONE (14:46)
== END 2024-10-24 16:32 | disposition home or self-care (01) ==
LOC: JERFT 13:58
DX: M25.561 Pain in right knee (principal); M25.541 Pain in joints of right hand; M25.461 Effusion, right knee; M25.441 Effusion, right hand; M19.041 Primary osteoarthritis, right hand; M17.11 Unilateral primary osteoarthritis, right knee
CPT/HCPCS: 73130-TC-RT-FY; 73562-TC-RT-FY; 99284-25